=== PATIENT | female | born 1950 | race Caucasian/White ===

== ENCOUNTER 2018-10-18 09:53 | Inpatient (IN) ==
--- NOTE | 2018-09-19 08:57 | Anesthesiology Consultation ---
Date of Service September 19, 2018 Assessment & Plan (1) Encounter for pre-operative examination: PCP clearance 10/10: EKG reviewed by PCP. PCP had EKG from 2010 available to them for comparison, which dhowed similar findings of Q waves in lead 3 greater than AVF. "Patient is at low risk for perioperative cardiac event and may undergo the proposed surgery under noninvasive cardiac monitoring...remote h/o MRSA infection, have swab on admission. Morbid obesity, monitor for hypopnea/apnea post-op." Chart Review Chart Review: Acceptable Risk for Surgery and Patient seen in Pre Admission Testing Teaching & Discussion Instructed NPO after midnight before surgery, except medications with 15 cc of water. Medication instructions provided according to the PAT guidelines. History Surgery Operation Date: 10/18/18 08:50 Proposed Procedures p Right Total Knee Replacement - Miquel Vega MD Height/Weight Height: 5 ft 3 in Weight: 117.3 kg Allergies Allergy/AdvReac Type Severity Reaction Status Date / Time No Known Allergies Allergy Verified 09/19/18 08:16 Medications Home Medications Medication Instructions Recorded Confirmed Last Taken acetaminophen 1,000 mg PO QAM PRN 09/19/18 09/19/18 Unknown allopurinol 200 mg PO QAM 09/19/18 09/19/18 Unknown aspirin [Ecotrin] 325 mg PO QPM 09/19/18 09/19/18 Unknown atorvastatin 10 mg PO QAM 09/19/18 09/19/18 Unknown buspirone 10 mg PO QAM 09/19/18 09/19/18 Unknown calcium citrate-vitamin D3 2 tab PO QAM 09/19/18 09/19/18 Unknown [Calcium Citrate + D] cyanocobalamin (vitamin B-12) 1,000 mcg PO QPM 09/19/18 09/19/18 Unknown lisinopril 40 mg PO QPM 09/19/18 09/19/18 Unknown metformin 1,000 mg PO BID 09/19/18 09/19/18 Unknown multivitamin 1 tab PO QAM 09/19/18 09/19/18 Unknown paroxetine HCl [Paxil] 20 mg PO QAM 09/19/18 09/19/18 Unknown tramadol 50 mg PO DAILY PRN 09/19/18 09/19/18 Unknown Past Medical History Medical History Anxiety Chronic kidney disease STAGE 3. MONITORING KIDNEY FUNCTION Depression Diabetes mellitus, type 2 NIDDM Gout Hyperlipidemia Hypertension Morbid (severe) obesity due to excess calories Osteoarthritis Thrombocytosis FOLLOWING WITH DR. AYERS ([facility]) ANNUALLY Past Family History Family History Grandmother Family history of diabetes mellitus Past Surgical History Surgical History History of adenoidectomy History of colonoscopy History of tonsillectomy Status post left partial knee replacement Past Anesthesia History No Hx of Anesthesia Complications and No Family Hx of Anesthesia Complications History of PONV No Motion Sickness Screening History of Motion Sickness: No Social History Smoking Status: Never smoker Do You Dip or Chew Tobacco: No Hx Alcohol Use: Yes Alcohol type: other alcohol intake frequency: a few times a month Hx Substance Use: No substance use type: does not use Exercise / Class Metabolic Activity II 4-5 Yardwork/Stairs/Walk up hill (Denies CP or SOB with stairs, does yard work) Review of Systems Pt denies any recent chest pain, shortness of breath, palpitations, cough, fever or URI. Physical Exam Vital Signs BP: 116/77 P: 84bpm SPO2: 95% RA T: 97.5 F R: 18 Constitutional + morbidly obese ENMT Mouth: + poor dentition (few dental caries); no chipped teeth and no loose teeth Thyromental Distance: < 3.5 Finger Breadths (3) Mallampati Class: III Neck + short neck and + thick neck; neck extension not limited Respiratory normal respiratory effort Auscultation: lungs clear to auscultation bilaterally Cardiovascular Rate/Rhythm: regular rate and regular rhythm Heart Sounds: no murmur Vessels: no carotid bruit Extremities: no edema Testing Electrocardiogram Date: 09/19/18 Findings: + NSR @ (70) Inferior infarct, age undetermined. No previous EKGs available. Chest X-Ray Date: 09/19/18 1. Right suprahilar opacity, likely represents a vascular summation. A three- month follow-up chest x-ray would seem prudent. 2. Otherwise no active disease in the chest. *this result was faxed to PCP for their f/u Laboratory Results 09/19/18 08:52 09/19/18 08:52 Blood Type A Positive 09/19/18 08:52 Antibody Screen NEGATIVE 09/19/18 08:52 PT 10.7 Seconds (9.0-12.0) 09/19/18 08:52 INR 1.0 (0.9-1.1) 09/19/18 08:52 APTT 24.8 Seconds (21.0-31.0) 09/19/18 08:52 Hemoglobin A1c 6.9 % (4.5-5.6) H 09/19/18 08:52
--- NOTE | 2018-09-19 09:00 | PAT Medication Instructions ---
Medication Instructions Date of Service September 19, 2018 Home Medications acetaminophen 1,000 mg PO QAM allopurinol 200 mg PO QAM aspirin [Ecotrin] 325 mg PO QPM atorvastatin 10 mg PO QAM buspirone 10 mg PO QAM calcium citrate-vitamin D3 2 tab PO QAM cyanocobalamin (vitamin B-12) 1,000 mcg PO QPM lisinopril 40 mg PO QPM metformin 1,000 mg PO BID multivitamin 1 tab PO QAM paroxetine HCl [Paxil] 20 mg PO QAM tramadol 50 mg PO DAILY PRN ASK your surgeon for instructions aspirin [Ecotrin] 325 mg PO QPM DO NOT take the morning of surgery calcium citrate-vitamin D3 2 tab PO QAM metformin 1,000 mg PO BID multivitamin 1 tab PO QAM Take morning of surgery With a small sip of water, OTHERWISE NOTHING TO EAT OR DRINK AFTER MIDNIGHT: acetaminophen 1,000 mg PO QAM (if needed, may be taken up to four hours before surgery) allopurinol 200 mg PO QAM atorvastatin 10 mg PO QAM buspirone 10 mg PO QAM paroxetine HCl [Paxil] 20 mg PO QAM tramadol 50 mg PO DAILY PRN (if needed, may be taken up to four hours before surgery) Take evening before surgery cyanocobalamin (vitamin B-12) 1,000 mcg PO QPM lisinopril 40 mg PO QPM metformin 1,000 mg PO BID tramadol 50 mg PO DAILY PRN (if needed) Other Notes If you have any questions please call us at [phone] or [phone] or [phone] or [phone]
--- NOTE | 2018-09-19 09:35 | XRay Report ---
XR chest Pre-admission PA/Lat CLINICAL HISTORY: Preoperative chest COMPARISON STUDY: No previous studies for comparison. FINDINGS: The cardiac and mediastinal contours are normal. There is no evidence of focal pulmonary co nsolidation. There is no evidence of failure. No pleural effusions are visualized.[ There is a right suprahilar opacity, likely representing a vascular summation. A three-month follow-up chest x-ray tanvi ht be considered. IMPRESSION: 1. Right suprahilar opacity, likely represents a vascular summation. A three-month follow-up chest x- ray would seem prudent. 2. Otherwise no active disease in the chest. Electronically signed by: Felipe Ibarra M.D. 09/19/2018 9:34 AM
[2018-09-19 10:08] LABS: Basophils # (auto) 0.04 K/uL (0-0.2); Basophils % (auto) 0.5 %; Eosinophils # (auto) 0.28 K/uL (0-0.5); Eosinophils % (auto) 3.2 %; Hematocrit (blood only) 39.1 % (37-47); Hemoglobin 13.1 g/dL (12.0-16.0); Immature Granulocytes # (auto) 0.02 K/uL (0.00-0.02); Immature Granulocytes % (auto) 0.2 %; Lymphocytes # (auto) 2.12 K/uL (1.2-3.4); Mean Corpuscular Hgb Conc 33.5 g/dL (32-36); Mean Corpuscular Volume 96.1 fL (80-100); Mean Platelet Volume 11.4 fL (7.4-10.4); Monocytes # (auto) 0.44 K/uL (0.11-0.59); Neutrophils # (auto) 5.95 K/uL (1.4-6.5); Neutrophils % (auto) 67.1 %; Platelet Count 536 K/uL (130-400); RDW Standard Deviation 49.1 fL (36.4-46.3); Red Blood Count 4.07 M/uL (4.2-5.4); White Blood Count 8.85 K/uL (4.8-10.8)
[2018-09-19 10:15] LABS: BUN Creatinine Ratio 18.5 (10-20); C Reactive Protein 0.57 mg/dl (0-0.29); Calcium 8.9 mg/dl (8.5-10.1); Creatinine Clr Calc Pharmacy 63.4 ml/min; Est GFR (African American) 61.9; Est GFR (Non-African American) 53.5; Potassium 3.6 mmol/L (3.5-5.1)
[2018-09-19 10:20] LABS: Estimated Average Glucose 151 mg/dl; Hemoglobin A1C 6.9 % (4.5-5.6)
[2018-09-19 10:31] LABS: Partial Thromboplastin Ratio 0.9; Partial Thromboplastin Time 24.8 Seconds (21.0-31.0); Prothrombin Time 10.7 Seconds (9.0-12.0)
--- NOTE | 2018-10-12 14:22 | History and Physical Report ---
DATE OF ADMISSION: 10/18/2018 CHIEF COMPLAINT: Right knee pain and discomfort. HISTORY OF PRESENT ILLNESS: The patient is a 68-year-old female who presents for surgical treatment of her right knee. She has had a long history of knee problems, had her left knee operated on [address] Carras[address] He apparently did a partial knee replacement. She has done pretty well from this side. Over the past 5-10 years, she developed increased pain and discomfort in her right knee. She describes global pain. Gradually, it has just gotten worse. It is starting to really affect her quality of life. She can only walk a couple of blocks. She has nighttime pain. She has difficulty going up and down steps. The more she walks, the more it hurts. She would like to proceed with surgical treatment. PAST MEDICAL HISTORY: 1. Diabetes with an A1c of 6.8. 2. Hypertension. 3. Elevated cholesterol. 4. Stage III kidney disease with a creatinine of 1.08. 5. Chronically elevated platelet level. PAST SURGICAL HISTORY: Previous surgeries include: 1. Left partial knee replaced 15+ years ago. 2. Tonsillectomy. ALLERGIES: None. CURRENT MEDICINES: Include: 1. Metformin. 2. Lisinopril. 3. Hydrochlorothiazide. 4. Allopurinol. 5. Pravachol. 6. Paxil. 7. Aspirin. SOCIAL HISTORY: A 68-year-old female. She is . Rare alcohol intake. Does not smoke. FAMILY HISTORY: Significant for diabetes and liver cancer. REVIEW OF SYSTEMS: Significant for diabetes. Denies any chest pain or shortness of breath. No history of DVT or PE. No known bleeding problems. She does have a chronically elevated platelet level. She has been evaluated by hematology, they have just been following this. PHYSICAL EXAMINATION: GENERAL: Shows a pleasant, healthy 68-year-old female. Looks to be in pretty good health. HEENT: Benign. NECK: Supple, no lymphadenopathy. LUNGS: Clear to auscultation. HEART: Has a regular rate and rhythm. ABDOMEN: Soft, nontender, nondistended. EXTREMITIES: Grossly neurovascularly intact except as follows: Examination of the right knee reveals patient ambulates independently. She does limp on this right side. She gets a slight varus alignment to her knee. She is tender over the medial joint line. Small knee effusion. Range of motion 0-120. No instability. No pain with hip motion. X-RAYS: X-rays of the right knee reviewed. She has advanced right knee DJD. She has complete loss of her medial and lateral joint space. Moderate patellofemoral disease as well. She has subchondral sclerosis. She has got osteophytes in all 3 compartments. ASSESSMENT: A 68-year-old white female with advanced right knee tricompartment degenerative joint disease. She has failed conservative treatment. She would like to have her right knee fixed. PLAN: We are going to take her to the operative room and do right total knee replacement. The risks and benefits of this procedure were explained to the patient including but not limited to DVT, PE, , infection, neurological injury, vascular injury, bleeding problem, pain, limited range of motion, stiffness, failure to relieve her symptoms, incomplete relief of symptoms, need for further surgery in future, fracture, leg length inequality, nerve palsy, etc. The patient desires to proceed. Informed consent was obtained. She does have a chronically elevated platelet level followed by the transport rn. We will use aspirin for DVT prophylaxis. Her creatinine is on the upper end of normal. We can use may be some low dose NSAIDs postoperatively and we will seek after follow that closely. As far as discharge plans, she is planning to be discharged to home likely with some home health.
[~2018-10-18 09:53] MED LIST: ACETAMINOPHEN 500 MG TAB PO SCH; BUPIVACAINE 0.5 % 5 MG/1 ML PF 10ML VIAL ONE; BUPIVACAINE LIPOSOME/PF 266 MG, BUPIVACAINE/EPINEPHRINE 50 ML, SODIUM CHLORIDE 0.9% 30 ... INFIL SCH; CEFAZOLIN 2000MG 2,000 MG/15 ML SYR IV SCH; FAMOTIDINE 20 MG TAB PO SCH; GABAPENTIN 300 MG PO SCH; LR 500ML BOLUS, THEN 15ML/HR IV SCH; LR 60ML/HR IV SCH; METOCLOPRAMIDE HCL 10 MG TABLET PO SCH; ROPIVACAINE 0.5% 5 MG/ML 30 ML VIAL ONE; SCOPOLAMINE 1.5 MG TDSY TD SCH; TRANEXAMIC ACID 1,000 MG **IV Intra-op IV SCH
[2018-10-18] MEDS ORDERED: MIDAZOLAM HCL 1 MG/ML 2ML VIAL ONE (10:38)
[2018-10-18] MEDS ORDERED: fentaNYL citrate 100 MCG/2 ML VIAL ONE (10:39)
--- NOTE | 2018-10-18 10:49 | History & Physical Bridge Note ---
Date of Service October 18, 2018 History & Physical Bridge Note I have examined the patient, reviewed the History & Physical and in the interval since the performance of the History & Physical I have noted the following changes of clinical significance: no changes noted
[2018-10-18] MEDS ORDERED: SODIUM CHLORIDE 0.9% PF 50 ML VIAL ONE (12:01)
[2018-10-18] MEDS ORDERED: BACITRACIN INJ 50,000 UNIT VIAL ONE (12:01)
[2018-10-18] MEDS ORDERED: BUPIVACAINE LIPOSOME 1.3% 266 MG/20 ML VIAL ONE (12:01)
[2018-10-18] MEDS ORDERED: BUPIVACAINE 0.25% 30 ML VIAL ONE (12:02)
[2018-10-18] MEDS ORDERED: EPINEPHrine INJ 1 MG/ML AMP ONE (12:02)
[2018-10-18] MEDS ORDERED: PHENYLEPHRINE 100MCG/ML 5ML SYR IV PRN (12:16)
[2018-10-18] MEDS ORDERED: HYDROmorphone INJ 1 MG/ML SYRINGE IV PRN (12:16)
[2018-10-18] MEDS ORDERED: KETOROLAC 30 MG/ML VIAL IV PRN (12:16)
[2018-10-18] MEDS ORDERED: ATROPINE SULFATE 0.1 MG/ML 10ML SYR IV PRN (12:16)
[2018-10-18] MEDS ORDERED: ONDANSETRON INJ 2 MG/ML 2 ML VIAL IV PRN ×2 (12:16→15:30)
[2018-10-18] MEDS ORDERED: ePHEDrine sulfate 50 MG/ML AMP IV PRN (12:16)
[2018-10-18] MEDS ORDERED: LIDOCAINE HCL 2% 2 ML VIAL/AMP(20MG/ML) INFIL ONE (13:55)
[2018-10-18] MEDS ORDERED: PROPOFOL IV EMULSION 10 MG/ML 20 ML VIAL IV ONE (13:56)
[2018-10-18] MEDS ORDERED: ONDANSETRON INJ 2 MG/ML 2 ML VIAL ONE (13:56)
--- NOTE | 2018-10-18 14:16 | Post Operative Brief Note ---
Immediate Post Op Note v1 Date of Surgery October 18, 2018 Pre & Post Diagnosis Operation Date: 10/18/18 12:30 Pre-Op Diagnosis: Right Knee Advanced Degenerative Joint Disease Post-Op Diagnosis: Right Knee Advanced Degenerative Joint Disease Procedure Operation Date: 10/18/18 12:30 Actual Procedures p Right Total Knee Arthroplasty(Right) - Miquel Vega MD Surgeon Miquel Vega MD Head Sampler Breanna, PAC Estimated Blood Loss 50 Findings Consistent with Post-Op Diagnosis Fluids 900 cc Specimens Right Knee Drains Cat Catheter (A 16 Yoruba cat catheter was inserted by PENELOPE Lomax, without difficulty, clear yellow urine obtained, output to be monitored by Anesthesia.) Anesthesia Type Spinal MAC Complications none Disposition Accompanied Patient To Recovery: No Disposition: Recovery Room
--- NOTE | 2018-10-18 14:45 | XRay Report ---
XR knee RT 2V routine HISTORY: 68 years-old Female Surgical Post Op right knee total joint arthroplasty. COMPARISON: Right knee radiographs 08/04/2018 TECHNIQUE: 2 views of the right knee FINDINGS: Right knee total joint arthroplasty and patella resurfacing demonstrates satisfactory alignment witho ut acute fracture or retained foreign body. Anterior midline skin ramakrishna are noted along with expect ed postsurgical soft tissue swelling and deep tissue air with anterior midline skin ramakrishna. IMPRESSION: Right knee total joint arthroplasty and patella resurfacing with satisfactory alignment. The above report was generated using voice recognition software. It may contain grammatical, syntax o r spelling errors. Electronically signed by: Arias Morris M.D. 10/18/2018 2:44 PM
--- NOTE | 2018-10-18 15:01 | Anesthesiology Progress Note ---
Date of Service October 18, 2018 Anesthesia Post Procedure Vital Signs Vital Signs: Temp Pulse Pulse Resp BP Pulse Ox 10/18/18 14:55 36.6 C 67 15 125/76 98 10/18/18 14:45 67 16 139/74 99 10/18/18 14:35 70 12 130/73 100 10/18/18 14:25 36.8 C 74 17 132/69 100 10/18/18 10:21 37.0 C 76 20 136/92 94 Pain Intensity Right Knee: Pain Intensity: 0 Transfer of Care Handoff Completed per policy Notes Mental Status: alert / awake / arousable Patient Amnestic to Procedure: Yes Nausea / Vomiting: adequately controlled Pain: adequately controlled Airway Patency, RR, SpO2: stable & adequate BP & HR: stable & adequate Hydration State: stable & adequate Neuraxial Anesthesia: was administered and sensory block is resolving Anesthetic Complications: no major complications apparent
[2018-10-18] MEDS ORDERED: ALUMINUM/MAGNESIUM SUSP 30 ML UDC PO PRN (15:30)
[2018-10-18] MEDS ORDERED: DEXTROSE 50% 50 ML SYRINGE IV PRN (15:30)
[2018-10-18] MEDS ORDERED: CARBOHYDRATES FOR HYPOGLYCEMIA PO PRN (15:30)
[2018-10-18] MEDS ORDERED: GLUCAGON FOR INJ 1 MG VIAL SQ PRN (15:30)
[2018-10-18] MEDS ORDERED: MAGNESIUM HYDROXIDE SUSP 30 ML UDC PO PRN (15:30)
[2018-10-18] MEDS ORDERED: GLUCOSE 40% GEL 15 GM TUBE PO PRN (15:30)
[2018-10-18] MEDS ORDERED: PHARMACY GLYCEMIC MGMT CONSULT STA (15:30)
[2018-10-18] MEDS ORDERED: BISACODYL 10 MG SUPP PR PRN (15:30)
[2018-10-18] MEDS ORDERED: GLUCOSE 10 TABS/TUBE PO PRN (15:30)
[2018-10-18] MEDS ORDERED: METOCLOPRAMIDE HCL INJ 5 MG/ML 2 ML VIAL IV PRN (15:30)
[2018-10-18] MEDS ORDERED: NALOXONE HCL 0.4 MG/1 ML VIAL/CARP IV PRN (15:30)
[2018-10-18] MEDS ORDERED: HYDROmorphone INJ 0.5 MG/0.5 ML SYR IV PRN (15:30)
[2018-10-18] MEDS ORDERED: PHARMACY GLYCEMIC MGMT CONSULT PRN (16:20)
[2018-10-18] MEDS: KETOROLAC TROMETHAMINE 15 MG/ML VIAL IV SCH ×2 (18:04→23:19)
[2018-10-18] MEDS: ASCORBIC ACID 500 MG TAB PO SCH (18:04)
[2018-10-18] MEDS: FERROUS GLUCONATE 324 MG TAB PO SCH (18:04)
[2018-10-18] MEDS: INSULIN ASPART 100 UNITS/ML 3 ML PEN SC SCH ×2 (18:09→22:18)
[2018-10-18] MEDS: CHECK SCOPOLAMINE PATCH PLACEMENT SCH ×2 (18:10→23:20)
--- NOTE | 2018-10-18 19:38 | Pharmacy Report ---
Pharmacy Glycemic Short Note 2 - Date of Service October 18, 2018 - Glycemic Short BSG Results (Last 24 hours): 10/18/18 10/18/18 10/18/18 10:19 14:27 17:26 POC Glucose 132 H 104 H 131 H OUTPATIENT ANTIDIABETIC REGIMEN: * metformin 1000 mg PO BID * A1C 6.9% (09/19/18) ASSESSMENT: * Liz is a 68 yr old T2DM female s/p R TKA * She is on metformin at home which will be held until evidence of renal function at baseline and patient tolerating oral intake * Will target BSG < 150 mg/dL to reduce the risk of post operative infection/complications * Patient did not receive any halina-operative steroids, therefore Lantus will only be given if BSG increases to > 150 mg/dL. Will start with a weight based Novolog per correction factor/carb ratio only. PLAN FOR INPATIENT GLYCEMIC CONTROL: * Hold outpatient oral diabetes medications * Basal insulin * none * Bolus insulin * NovoLog per scale ACHS or Q6hrs while NPO * Goal Range: Low 110 mg/dL - High 140 mg/dL * Correction Factor: 20 mg/dL/unit * Nutritional / Prandial insulin per carb ratio of 1 unit per 7 grams CHO consumed thank you
[2018-10-18] MEDS: ACETAMINOPHEN 500 MG TAB PO SCH (20:00)
[2018-10-18] MEDS: CEFAZOLIN 2000MG 2,000 MG/15 ML SYR IV SCH (20:01)
[2018-10-18] MEDS ORDERED: TRANEXAMIC ACID 1,000 MG in 0.9 % SODIUM CHLORIDE 100 ML IV SCH (20:30)
[2018-10-18] MEDS: SENNA 8.6 MG TAB PO SCH (20:30)
[2018-10-18] MEDS: DOCUSATE SODIUM 100 MG CAP PO SCH (20:30)
[2018-10-18] MEDS: LISINOPRIL 40 MG TAB PO SCH (20:31)
[2018-10-18] MEDS: ASPIRIN 81 MG ECTAB PO SCH (20:31)
[2018-10-18] MEDS: TAPENTADOL HCL ER 50 MG TABCR PO SCH (20:33)
[2018-10-18] MEDS: SODIUM CHLORIDE 0.9% 1000ML 1,000 ML IV SCH (21:29)
[2018-10-18] MEDS: CYANOCOBALAMIN 500 MCG TABLET (VITAMIN B-12) PO SCH (21:29)
--- NOTE | 2018-10-19 01:28 | Operative Report ---
DATE OF OPERATION: 10/18/2018 SURGEON: Dr. Miquel Vega. IN SERVICE EDUCATOR: PENELOPE Smart PREOPERATIVE DIAGNOSIS: Right knee degenerative joint disease. POSTOPERATIVE DIAGNOSIS: Right knee degenerative joint disease. PROCEDURE PERFORMED: Right cemented posterior stabilized total knee arthroplasty. COMPLICATIONS: None. ESTIMATED BLOOD LOSS: 50 mL. FLUID REPLACEMENT: 900 mL crystalloid fluid replacement. ANESTHESIA: Spinal with adductor canal block. DRAINS: None. SPECIMENS: Right knee sent for pathology. TOURNIQUET TIME: 52 minutes at 300 mmHg. OPERATIVE INDICATIONS: The patient is a 68-year-old female who has had a long history of knee problems. She underwent left partial knee replacement many years ago and has been pretty well from this. She developed increased pain and discomfort in her right knee. She has failed all conservative care. X-rays show advanced right knee tricompartment DJD. She elected to proceed with surgical treatment. OPERATIVE FINDINGS: Operative findings were extensive grade 4 [id number] disease in all 3 compartments, most severe in the medial compartment, osteophytes in all 3 compartments, and a moderate sized joint effusion and a 15 degree flexion contracture. OPERATIVE IMPLANTS: Operative implants consisted of: 1. Biomet Vanguard size 65 right posterior stabilized femoral component. 2. Biomet size 67 tibial tray. 3. A 10 mm posterior stabilized polyethylene insert. 4. A 28 x 8 all poly patella. OPERATIVE PROCEDURE: The patient taken to the operating room, identified and placed on the operative table in supine position. All contact areas were appropriately padded. IV antibiotics were provided by anesthesia team. A spinal anesthetic was implemented along with an adductor canal block in holding area. A Bermeo catheter was placed in sterile fashion. Right thigh tourniquet was then placed and the right lower extremity was prepped and draped in the usual sterile fashion. The right leg was elevated and exsanguinated with an Esmarch and tourniquet was placed at 300 mmHg. An anterior approach of the right knee was then performed through a longitudinal incision centered over the patella. Sharp dissection was carried through the subcutaneous tissue down to the level of the extensor mechanism. A medial parapatellar arthrotomy incision was made. Some subperiosteal dissection carried out medially. The fat pad resected from beneath the patellar tendon. The lateral patellofemoral ligament was released. The patella was everted and knee was flexed. The osteophytes were taken off the distal femur. The ACL and PCL were then released from the distal femur and the tibia subluxated anteriorly. The external tibial alignment jig was then placed on the anterior aspect of the tibia and adjusted 14 mm medially. The proximal tibial cut was made to remove about 2 mm of bone from most deficient aspect of the medial tibial plateau. Some osteophytes were taken off medial and posteromedially. Tibia sized to a size 67. Attention was then drawn to the femur. The distal femur was entered with a sharp drill bit. Intramedullary canal was suctioned. A right 5 degree valgus cutting guide was placed. Distal femoral cutting block was pinned in place. Distal femoral cut was made to take an additional 3 mm of bone off the distal femur. The femur was then sized to a size 65. The AP cutting block was pinned parallel to epicondylar axis, which was 3 degrees of external rotation. The anterior cut, anterior chamfer cut, posterior cut, posterior chamfer cuts were made. Box cutting guide was placed and adjusted slight lateral and the box cut was made. The knee was flexed. The remnants of the medial and lateral meniscus were excised. The osteophytes were taken off the posterior aspect of the femur. A trial femoral component was placed. Tibial tray was pinned in maximum external rotation. The drill and stem punch were used to create defect in proximal tibia for the tibial tray. The knee was then trialed and the 10 mm insert fit most appropriately. Attention was then drawn to the patella. The patella was cleaned of all soft tissues. Patella thickness measured 21 mm in thickness and was cut down to 13. It was sized to a size 28 patella. Lug holes were drilled for the 28 patella. Lateral osteophyte was removed. Patella button was placed. Knee was taken through range of motion. The patella tracked nicely with no thumbs test. Attention was then drawn toward placement of permanent components. All trial components were removed. Bone plug was placed in the distal femur to limit blood loss. A double batch of Palacos G cement was mixed. A Biomet Vanguard size 65 right posterior stabilized femoral component, size 67 tibial tray, 10 mm posterior stabilized polyethylene insert, 28 x 8 all poly patella then cemented in place. Knee was brought into full extension until cement hardened. A final cement check was then performed. Pericapsular tissues were injected with a total of 100 mL combination of 20 mL of Exparel, 30 mL of normal saline, 50 mL of 0.25% Marcaine with epinephrine. The patient did receive 1 gram of tranexamic acid and the tourniquet was then let down for final tourniquet time of 52 minutes. Hemostasis was assured with use of electrocautery. The extensor mechanism was then closed with a combination of #1 PDS suture and #1 Vicryl suture in a [id number] fashion. Extensor mechanism was checked and found to be intact. The subcutaneous tissues were then closed with #2 Dexon suture in a buried interrupted fashion. Skin was closed with skin ramakrishna. Leg was then cleaned, dried and a sterile dressing of Xeroform, 4 x 4's, sterile cast padding and Jeff bandage were applied. The patient then transferred to the recovery room in stable condition. The patient tolerated the procedure with no complications. All needle and sponge counts were correct at the end of the operation. I attest to the content of the Intraoperative Record and any orders documented therein. Any exception s are noted below.
[2018-10-19] MEDS: CEFAZOLIN 2000MG 2,000 MG/15 ML SYR IV SCH (04:18)
[2018-10-19] MEDS: SODIUM CHLORIDE 0.9% 1000ML 1,000 ML IV SCH (04:40)
[2018-10-19] MEDS: ACETAMINOPHEN 500 MG TAB PO SCH ×3 (05:37→21:15)
[2018-10-19] MEDS: KETOROLAC TROMETHAMINE 15 MG/ML VIAL IV SCH ×3 (05:37→17:54)
[2018-10-19 06:11] LABS: Hemoglobin 11.8 g/dL (12.0-16.0); Mean Corpuscular Hgb Conc 33.7 g/dL (32-36); Mean Corpuscular Volume 95.1 fL (80-100); Platelet Count 439 K/uL (130-400); RDW Coefficient of Variation 13.8 % (11.5-14.5); RDW Standard Deviation 47.8 fL (36.4-46.3); Red Blood Count 3.68 M/uL (4.2-5.4); White Blood Count 10.09 K/uL (4.8-10.8)
[2018-10-19 06:53] LABS: Calcium 8.3 mg/dl (8.5-10.1); Creatinine Clr Calc Pharmacy 45.1 ml/min; Est GFR (African American) 40.7; Est GFR (Non-African American) 35.1; Potassium 3.6 mmol/L (3.5-5.1)
[2018-10-19] MEDS: INSULIN ASPART 100 UNITS/ML 3 ML PEN SC SCH ×4 (08:42→20:27)
[2018-10-19] MEDS: TAPENTADOL HCL ER 50 MG TABCR PO SCH ×2 (08:45→20:25)
[2018-10-19] MEDS: FERROUS GLUCONATE 324 MG TAB PO SCH ×2 (08:45→17:54)
[2018-10-19] MEDS: ASPIRIN 81 MG ECTAB PO SCH ×2 (08:45→20:25)
[2018-10-19] MEDS: DOCUSATE SODIUM 100 MG CAP PO SCH ×2 (08:46→20:25)
[2018-10-19] MEDS: ATORVASTATIN 10 MG TAB PO SCH (08:46)
[2018-10-19] MEDS: ALLOPURINOL 100 MG TAB PO SCH (08:46)
[2018-10-19] MEDS: MULTIVITAMIN TAB PO SCH (08:48)
[2018-10-19] MEDS: ASCORBIC ACID 500 MG TAB PO SCH ×2 (08:48→17:54)
[2018-10-19] MEDS: PARoxetine HCl 20 MG TAB PO SCH (08:48)
[2018-10-19] MEDS: CALCIUM 600MG + VIT D 400 IU TAB PO SCH (08:49)
[2018-10-19] MEDS ORDERED: MULTIVITAMIN TAB PO SCH (09:00)
--- NOTE | 2018-10-19 09:27 | Progress Note ---
DATE: 10/19/2018 SUBJECTIVE: A 68-year-old white female postop day 1 from a right knee replacement. She is doing well. Really not having much pain at all. Had a good night. No chest pain or shortness of breath. Not feeling dizzy or lightheaded. OBJECTIVE: VITAL SIGNS: Temperature 36.5. Vital signs stable. GENERAL: Physical examination shows a pleasant, middle-aged female. She is sitting up at her bedside chair, looks pretty comfortable. LUNGS: Clear to auscultation. HEART: Regular rate and rhythm. ABDOMEN: Soft, nontender, nondistended. EXTREMITIES: Grossly neurovascularly intact except as follows: Examination of the right leg reveals the dressing to be clean, dry and intact. She can dorsiflex and plantarflex her foot appropriately. She is neurologically intact. LABORATORY DATA: Hemoglobin 11.8. Hematocrit 35.0. Platelets are chronically elevated at 439. Electrolytes are fairly stable. Creatinine is slightly elevated. ASSESSMENT: A 68-year-old white female postop day #1 from right knee replacement, doing pretty well. Pain is controlled. She is neurologically intact. She has chronically elevated platelet level. PLAN: 1. DVT prophylaxis including thigh-high TEDs, SCDs, and aspirin twice a day. 2. PT/OT. Weight bear as tolerated. Right total knee protocol. 3. Pain control, doing pretty well with current pain regimen. 4. Elevated creatinine. We will continue to follow her creatinine. If it is still elevated tomorrow, may stop the Toradol. 5. Disposition: Plan to discharge to home with some home health once adequately recovered.
--- NOTE | 2018-10-19 13:40 | Pharmacy Report ---
Glycemic Control Progress Note - Date of Service October 19, 2018 - Scope Glycemic Pharmacist consulted for glycemic control to write orders per [facility] inpatient glycemic control protocol. - Objective Accuchecks BSG(last 24 hours):: 10/18/18 10/18/18 10/18/18 14:27 17:26 20:24 Glucose POC Glucose 104 H 131 H 128 H 10/19/18 10/19/18 10/19/18 05:46 08:06 11:43 Glucose 121 H POC Glucose 143 H 87 HbA1c:: Hemoglobin A1c 6.9 % (4.5-5.6) H 09/19/18 08:52 - Recent Pertinent Medications The patient is currently receiving: * Basal insulin: Lantus -- units every -- hours * Correctional Insulin: Novolog Correction per scale ACHS Goal Range: Low 110 mg/dL - High 140 mg/dL Correction Factor: 20 mg/dL/unit * Prandial insulin: Per carb ratio of 1 unit per 7 grams CHO consumed - Outpatient Anti-Diabetic Meds metformin 1000 mg PO BID - Assessment & Plan ASSESSMENT: * See progress note from 10/18/18 for more background info, in short: * Pt receiving SQ basal bolus insulin regimen for hyperglycemia secondary to baseline DM (outpatient regimen on hold), POD 1 for R TKA. * Patient is currently receiving an average of 6 units of insulin per day * -- units of basal insulin * 6 units of prandial/correctional insulin * BSGs ranging 128 - 132 mg/dl over the past 24hrs * Changes needed to insulin regimen: * AM Fasting BSG = 143 mg/dl. This is just slightly above goal range for patient based on inpatient targets and co-morbidities. Will not order basal insulin quite yet unless patient continues to trend upwards. * Post-prandial BSGs did trend downwards at lunch so loosened CF/CR * Total daily dose = <10 units. * Additional notes / comments: Continue to hold metformin until RODNEY resolves. PLAN FOR INPATIENT GLYCEMIC CONTROL: * NO LANTUS * LOOSENING correction factor to 30 mg/dl/unit * LOOSENING carb ratio to 1 unit per 10 grams CHO consumed * Continuing goal range of Low 110 mg/dL - High 140 mg/dL RECOMMENDATIONS FOR DISCHARGE: * Patient's HbA1C well controlled as an outpatient so may continue current regimen. Thank you.
[2018-10-19] MEDS: OXYCODONE HCL IR 5 MG TAB (IMMEDIATE RELEASE) PO PRN (17:56)
[2018-10-19] MEDS: CYANOCOBALAMIN 500 MCG TABLET (VITAMIN B-12) PO SCH (20:25)
[2018-10-19] MEDS: SENNA 8.6 MG TAB PO SCH (20:25)
[2018-10-19] MEDS: LISINOPRIL 40 MG TAB PO SCH (20:26)
[2018-10-20] MEDS: OXYCODONE HCL IR 5 MG TAB (IMMEDIATE RELEASE) PO PRN ×2 (00:13→07:40)
[2018-10-20] MEDS: KETOROLAC TROMETHAMINE 15 MG/ML VIAL IV SCH ×2 (00:18→06:15)
[2018-10-20] MEDS: ACETAMINOPHEN 500 MG TAB PO SCH (05:44)
[2018-10-20 06:55] LABS: BUN Creatinine Ratio 14.4 (10-20); Calcium 8.8 mg/dl (8.5-10.1); Creatinine Clr Calc Pharmacy 55.7 ml/min; Est GFR (African American) 52.4; Est GFR (Non-African American) 45.2; Potassium 3.6 mmol/L (3.5-5.1)
[2018-10-20] MEDS: ATORVASTATIN 10 MG TAB PO SCH (07:31)
[2018-10-20] MEDS: ALLOPURINOL 100 MG TAB PO SCH (07:31)
[2018-10-20] MEDS: CALCIUM 600MG + VIT D 400 IU TAB PO SCH (07:31)
[2018-10-20] MEDS: ASCORBIC ACID 500 MG TAB PO SCH (07:32)
[2018-10-20] MEDS: PARoxetine HCl 20 MG TAB PO SCH (07:32)
[2018-10-20] MEDS: ASPIRIN 81 MG ECTAB PO SCH (07:32)
[2018-10-20] MEDS: FERROUS GLUCONATE 324 MG TAB PO SCH (07:32)
[2018-10-20] MEDS: MULTIVITAMIN TAB PO SCH (07:32)
[2018-10-20] MEDS: DOCUSATE SODIUM 100 MG CAP PO SCH (07:32)
[2018-10-20] MEDS: INSULIN ASPART 100 UNITS/ML 3 ML PEN SC SCH (07:33)
[2018-10-20] MEDS: TAPENTADOL HCL ER 50 MG TABCR PO SCH (07:40)
--- NOTE | 2018-10-20 07:41 | Progress Note ---
DATE: 10/20/2018 SUBJECTIVE: A 68-year-old white female postop day 2 from right knee replacement. She is doing pretty well. Had a little bit more pain last night, but doing better this morning. No chest pain or shortness of breath. Not feeling dizzy or lightheaded. OBJECTIVE: VITAL SIGNS: Temperature 36.7. Vital signs stable. GENERAL: Physical examination shows a pleasant, middle-aged female. She is sitting up in her bedside chair, looks pretty comfortable. EXTREMITIES: Examination of the right leg reveals the dressing to be clean, dry and intact. Minimal drainage. Calf is soft and supple. She is neurologically intact. ASSESSMENT: A 68-year-old white female postop day 2 from a right knee replacement, doing pretty well. Pain is controlled. PLAN: 1. DVT prophylaxis including thigh-high TEDs, SCDs, and aspirin twice a day. 2. PT/OT. Weight bear as tolerated. Right total knee protocol. 3. Pain control, doing pretty well with current pain regimen. 4. Disposition: Plan to discharge to home. She is going to do outpatient therapy.
--- NOTE | 2018-10-26 14:40 | Discharge Summary ---
ADMITTING PHYSICIAN AND SURGEON: Dr. Miquel Vega. ADMITTING DIAGNOSIS: Right knee degenerative joint disease. SURGERY PERFORMED: Right total knee arthroplasty. SECONDARY DIAGNOSES: Diabetes, hypertension, elevated cholesterol, stage III kidney disease, chronic elevated platelet level. CONSULTS: None obtained. HISTORY AND PHYSICAL EXAMINATION: Well documented in the patient's chart. HOSPITAL COURSE: The patient was admitted on 10/18/2008 and underwent total knee arthroplasty, tolerated the procedure well. There were no complications. She was transferred to the PACU postoperatively and later to the orthopedic for further care. She was given Ancef for antibiotic prophylaxis, NAGA stockings, SCDs and aspirin for DVT prophylaxis. Hemoglobin, hematocrit and vital signs were monitored during her hospital stay and remained stable. She did not require blood transfusions. There were no complications. By postoperative day 2, she was tolerating a diabetic diet. Pain was controlled with oral pain medicine. She was participating in physical therapy. Postop day 2, she was discharged home. She was given printed discharge instructions including new prescriptions for extra strength Tylenol, aspirin and oxycodone. Continue her home medications with the exception of her home dose of aspirin which was changed. Continue physical therapy, weightbearing as tolerated, NAGA stockings. Follow up approximately 2 weeks postoperatively or sooner if there are problems or concerns.
== END 2018-10-20 10:44 | disposition home or self-care (01) | DRG 470 ==
LOC: ASU 09:53 → 3E 14:21